=== PATIENT | female | born 1975 | race Hispanic/Latino ===

== ENCOUNTER 2019-02-25 14:19 | Emergency (ER) | payer OTHER ==
[~2019-02-25] VITALS: Ht 160 cm; Wt 60.5 kg
[2019-02-25] MEDS ORDERED: dexameTHASONE 20 MG/5 ML VIAL (J1100) IV ONE (14:45)
[2019-02-25 16:15] VITALS: BP 110/63
== END 2019-02-25 16:27 | disposition home or self-care (01) ==
LOC: EDBD 14:19 → M ED 14:19
DX: R13.10 Dysphagia, unspecified (principal)
CPT/HCPCS: 93041; 94760; 99284; J1100

== ENCOUNTER 2019-03-24 12:10 | Emergency (ER) | payer OTHER ==
[~2019-03-24] VITALS: Ht 160 cm; Wt 58.2 kg
[2019-03-24] MEDS ORDERED: METOPROLOL 5 MG/5 ML VIAL IV SCH (13:00)
[2019-03-24] MEDS ORDERED: ASPIRIN 325 MG TAB PO ONE (13:00)
[2019-03-24] MEDS ORDERED: METOPROLOL TART 25 MG TABLET PO ONE (13:00)
--- NOTE | 2019-03-24 13:13 | REP ---
Portable chest x-ray: Single view. History: Chest pain. Findings: EKG monitoring electrodes overlie the chest. Lungs are well inflated and clear. Pleural angles are sharp. Cardiomediastinal silhouette and bony thorax are unremarkable. Impression: Negative portable chest x-ray. Electronically Signed by Inder Fields MD 03/24/2019 01:04 P
[2019-03-24 13:14] LABS: BASO % 0.2 % (0.0-1.0); EOS # 0.1 10^3/uL (0.0-0.50); EOS % 1.1 % (0.0-3.0); HEMATOCRIT 38.9 % (36.0-47.0); HEMOGLOBIN 13.2 g/dl (12.0-15.5); LYMPH # 1.6 10^3/uL (1.5-4.5); LYMPH % 16.7 % (24.0-44.0); MEAN CORPUSCULAR HEMOGLOBIN 32.1 pg (27.0-33.0); MEAN CORPUSCULAR HGB CONC 33.9 g/dl (32.0-36.5); MEAN CORPUSCULAR VOLUME 94.6 fl (80.0-96.0); MONO # 0.7 10^3/uL (0.0-0.8); MONO % 7.2 % (0.0-5.0); NEUTROPHILS # 7.1 10^3/uL (1.8-7.7); NEUTROPHILS % 74.4 % (36.0-66.0); PLATELET COUNT, AUTOMATED 203 10^3/uL (150-450); RED BLOOD COUNT 4.11 10^6/uL (4.00-5.40); WHITE BLOOD COUNT 9.5 10^3/uL (4.0-10.0)
[2019-03-24 13:24] LABS: INR 0.99; PROTHROMBIN TIME 13.2 SECONDS (12.1-14.4)
[2019-03-24 13:27] LABS: D-DIMER QUANT 566.69 ng/ml (<500)
[2019-03-24 13:41] LABS: BLOOD UREA NITROGEN 14 MG/DL (7-18); CALCIUM LEVEL 8.8 MG/DL (8.5-10.1); CARBON DIOXIDE LEVEL 22 MEQ/L (21-32); CHLORIDE LEVEL 105 MEQ/L (98-107); CK-MB VALUE MASS < 1.0 NG/ML (<3.6); CPK CREATINE PHOSPHOKINASE 90 U/L (26-192); CREATININE FOR GFR 0.74 MG/DL (0.55-1.30); GLOMERULAR FILTRATION RATE > 60.0 (>58); GLUCOSE, FASTING 95 MG/DL (70-100); MB/CK RELATIVE INDEX 1.11 (< OR =4); POTASSIUM SERUM 3.3 MEQ/L (3.5-5.1); SODIUM LEVEL 139 MEQ/L (136-145); TROPONIN I < 0.02 NG/ML (< 0.10)
[2019-03-24 13:45] LABS: FREE THYROXINE INDEX 4.6 % (1.3-4.8); MAGNESIUM LEVEL 1.9 MG/DL (1.8-2.4); THYROID STIMULATING HORMONE 0.961 uIU/ML (0.358-3.740)
[2019-03-24] MEDS ORDERED: ISOVUE-370 76% 100ML VIAL (Q9967) As Ordered ONE (13:47)
--- NOTE | 2019-03-24 15:16 | REP ---
CT ANGIOGRAM CHEST: TECHNIQUE: Axial contrast enhanced images from the thoracic inlet to the upper abdomen using 100 mL Isovue 370 intravenous contrast material with multiplanar reformations. There is no CT evidence of pulmonary embolism. There is no thoracic aortic aneurysm or dissection. Heart is normal in size. There is no mediastinal, hilar, or chest wall lymphadenopathy. There is no pleural or pericardial effusion. There is no infiltrate in either lung. IMPRESSION: No evidence of pulmonary embolism or aortic dissection. Electronically Signed by Alan Harris MD 03/24/2019 04:46 P
[2019-03-24 16:14] VITALS: BP 105/67
--- NOTE | 2019-03-25 13:13 | ECGEPIP ---
[facility] - ED Test Date: 2019-03-24 Pat Name: AMADO HENNESSY Department: Room: - Gender: Female Blending Technician: kaylah : [id number] Requested By: JOSE DANIEL Lord Order Number: [id number] Reading MD: Bar Cordero Measurements Intervals [place] Rate: 78 P: 57 MS: 136 QRS: 15 QRSD: 85 T: 50 QT: 387 QTc: 441 Interpretive Statements SINUS RHYTHM WITH SINUS ARRHYTHMIA NO PRIORS FOR COMPARISON Electronically Signed on 03-25-2019 13:12:59 EDT by Bar Cordero
== END 2019-03-24 16:16 | disposition home or self-care (01) ==
LOC: M ED 12:10
DX: R07.89 Other chest pain (principal); R06.02 Shortness of breath
CPT/HCPCS: 36415; 71045; 71275; 80048; 82550; 82553; 83735; 84436; 84443; 84479; 84484; 85025; 85379; 85610; 93005; 93041; 94760; 99285; Q9967